=== PATIENT | male | born 1990 | race Caucasian/White ===

== ENCOUNTER 2017-02-22 11:52 | Emergency (ER) | payer OTHER ==
[2017-02-22 12:01] VITALS: BP 138/85; PULSE 60; RESP 16; TEMP 98.1; O2SAT 98
--- NOTE | 2017-02-22 12:53 | EDPHY ---
H & P Smoking Status: Never smoked Time Seen by Provider: 02/22/17 12:33 HPI/ROS: CHIEF COMPLAINT: Acute right foot pain HISTORY OF PRESENT ILLNESS: 27-year-old male arrives via private vehicle complaining of acute right 5th metatarsal pain after he was hiking on relatively flat surface, rolled his foot on a rock and complaining of right lateral foot pain. He was able to bear partial weight albeit with pain. No proximal pain or injury. No fibular head pain or injury. No paresthesia. No fall from height. Occurred shortly prior to arrival. PHYSICAL EXAM (Prior to examination, patient consented to physical exam, hands were washed and my usual and customary physical exam procedures followed) 1) GENERAL: Well-developed, well-nourished, alert and oriented. Appears to be in no acute distress. 2) HEAD: Normocephalic 3) HEENT: Pupils equal, round, reactive to light bilaterally. 4) LUNGS: Breathing comfortably. 5) MUSCULOSKELETAL: Soft tissue swelling and tenderness to palpation 5th metatarsal base. Intact skin. proximal tibia and fibula nontender .5th MT nontender negative Khoury test, compartments soft 6) SKIN: intact. Soft compartments. 7) VASCULAR: DP,PT pulses and cap refill present and brisk DIFFERENTIAL DIAGNOSIS: in no particular order including but not limited to fracture, sprain, compartment syndrome Procedure: Crutches indications for crutch use discussed with patient. Patient fitted for crutches by ER staff. Observed ambulating with crutches. I think the patient has the capacity to safely use crutches. Usual and customary crutch walking precautions provided Procedure: Splint A [place] boot splint was applied by ER microbiology quality control technician. After application of the splint I returned and re-examined the patient. The splint was adequately immobilizing the joint and distal to the splint the patient's circulation and sensation were intact. Patient shows no signs of compartment syndrome. Was given orthopedic precautions. (Francesco Shields) Constitutional: Initial Vital Signs Temperature (C) 36.7 C 02/22/17 11:52 Heart Rate 60 02/22/17 11:52 Respiratory Rate 16 02/22/17 11:52 Blood Pressure 138/85 H 02/22/17 11:52 O2 Sat (%) 98 02/22/17 11:52 O2 Delivery Mode Room Air Allergies/Adverse Reactions: No Known Allergies Allergy (Unverified 02/22/17 11:59) Home Medications: Medication Instructions Recorded Hydrocodone/APAP 5/325 [[place] 1 tab PO Q6 PRN #15 tab 02/22/17 5/325 (RX)] Ibuprofen [Motrin (*)] 800 mg PO Q6 #15 tab 02/22/17 MDM/Departure - [facility] Imaging Results: Images reviewed by myself (Francesco Shields) ED Course/Re-evaluation: I recommend patient follow up with Orthopedics. This patient is neurovascular intact. Discussed his imaging results with him. He has been placed in a [place] boot crutches and recommend orthopedic follow-up. Of note in this patient, he is scheduled to take the [facility] exam tomorrow informs me that he is unable to have any medical devices with him at that time. I have written him a note informing that he should wear [place] boot have crutches with him however I cannot guarantee that he will be able to take these into his examination with him. Usual and customary orthopedic precautions and instructions provided. (Francesco Shields) This patient was evaluated and managed by the PA. I agree with the plan of care. I am the secondary supervising physician. (Jacinta Salmon) - Depart Disposition: Home, Routine, Self-Care Clinical Impression: Nondisplaced fracture of fifth right metatarsal bone Condition: Good Instructions: Foot Fracture in Adults (ED) Additional Instructions: Return to the ER immediately if you experience discoloration, have worsening pain, numbness, tingling, or any other symptoms that concern you. If you received x-rays in the emergency department today, be advised, that ligamentous , tendon, muscular, and other non-bony injury cannot be fully ruled out. Try to keep your affected extremity elevated above the level of your chest, and keep cold packs on the affected area, for the next 48 hours. Prescriptions: Hydrocodone/APAP 5/325 [[place] 5/325 (RX)] 1 tab PO Q6 PRN #15 tab PRN Reason: Pain, Severe Ibuprofen [Motrin (*)] 800 mg PO Q6 #15 tab Referrals: Christos Bermudez MD [Medical Doctor] - 5-7 days, call for appt.
== END 2017-02-22 13:19 | disposition home or self-care (01) ==
DX: S92.354A Nondisplaced fracture of fifth metatarsal bone, right foot, initial encounter for closed fracture (principal); X58.XXXA Exposure to other specified factors, initial encounter; Y93.01 Activity, walking, marching and hiking